=== PATIENT | male | born 1995 | race Two or more races ===

== ENCOUNTER 2020-05-26 07:41 | Emergency (ER) | payer OTHER ==
[~2020-05-26] VITALS: Ht 175.3 cm; Wt 74.8 kg
[2020-05-26] MEDS ORDERED: Morphine Sulfate 2mg/ml Inj(IV/IM USE ONLY) IM ONE (07:45)
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
--- NOTE | 2020-05-26 07:49 | NUR ---
lapd by bedside
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
[2020-05-26 07:58] VITALS: BP 136/86
--- NOTE | 2020-05-26 07:59 | NUR ---
pt was taken to CT scan via [facility].
--- NOTE | 2020-05-26 08:28 | NUR ---
pt back from ct scan.
--- NOTE | 2020-05-26 08:55 | Diagnostic Imaging Report ---
EXAM: CT CT Head no Contrast INDICATION: Trauma and headache. TECHNIQUE: Axial images of the brain were obtained with subsequent sagittal and coronal reformats. All CT scans at this facility are performed using dose modulation techniques as appropriate to a performed exam including the following: automated exposure control with adjustment of the mA and/or kV according to patient size. COMPARISON STUDY: None. RADIATION DOSE: CTDIvol: 53.4 mGy DLP: 1125.7 mGy-cm Dose information generated by the CT scanner is available in PACS. FINDINGS: There is normal symmetry and normal dennis-white differentiation. There is no acute large territory cortical infarct, hemorrhage, mass effect or shift. Ventricles and cisterns as well as brainstem and posterior fossa appear unremarkable. The sellar region is normal. Sinuses, mastoid air cells and bony calvarium appear intact. IMPRESSION: No acute intracranial traumatic injury.
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
--- NOTE | 2020-05-26 09:06 | Diagnostic Imaging Report ---
EXAM: CT CT L Spine no Contrast CLINICAL HISTORY: Trauma with back pain. TECHNIQUE: Axial images obtained through the lumbar spine with subsequent sagittal and coronal reformat images. All CT scans at this facility are performed using dose modulation techniques as appropriate to a performed exam including the following: automated exposure control with adjustment of the mA and/or kV according to patient size. RADIATION DOSE: CTDIvol: 5.5 mGy DLP: 186.8 mGy-cm Dose information generated by the CT scanner is available in PACS. COMPARISON: None FINDINGS: There is anatomic alignment. Vertebral bodies are intact without compression deformity. There is no fracture, bony lesions or erosions. Disc spaces are relatively well-maintained. There is no paraspinal soft tissue abnormality. IMPRESSION: NO FRACTURE OR TRAUMATIC MALALIGNMENT.
[2020-05-26] MEDS ORDERED: IBUPROFEN600 M1 ORAL (09:28)
[2020-05-26] MEDS ORDERED: ROBAXIN-750750 MG PO (09:28)
--- NOTE | 2020-05-26 09:52 | NUR ---
ED Nurse Note: Pt cleared by health care Provider for discharge. DC instructions/prescription was given and explained to pt and verbalized understanding of teachings. All medical deviecs such as ID band removed. Pt is AAO x4, ambulatory and left with all personal belongings.
== END 2020-05-26 09:53 | disposition home or self-care (01) ==
LOC: EDBD 07:41 → EMR 08:00
DX: S16.1XXA Strain of muscle, fascia and tendon at neck level, initial encounter (principal); M54.9 Dorsalgia, unspecified; R51.9 Headache, unspecified; V43.52XA Car driver injured in collision with other type car in traffic accident, initial encounter; Y92.9 Unspecified place or not applicable
CPT/HCPCS: 70450; 72125; 72128; 72131; 96372; J2270; Z7502; 99284